=== PATIENT | male | born 1930 | race Caucasian/White ===

== ENCOUNTER 2018-05-05 12:01 | Outpatient (CLI) | payer MEDICARE | END 2018-05-05 12:02 | disposition home or self-care (01) | LOC: BICRAD 12:01 | PROVIDERS: ATTEND Internal Medicine | DX: M25.551 Pain in right hip (principal); M25.552 Pain in left hip; M16.0 Bilateral primary osteoarthritis of hip ==

== ENCOUNTER 2019-08-02 07:53 | Outpatient (CLI) | payer MEDICARE ==
--- NOTE | 2019-08-02 09:55 | MRI ---
MRI LUMBAR SPINE WITHOUT IV CONTRAST: HISTORY: Low back pain, left leg pain and tingling. TECHNIQUE: Multiplanar, multisequence MR examination of the lumbar spine is performed. FINDINGS: There is some levoscoliosis. Generalized disk desiccation changes and ligament and facet hypertrophic changes. 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 Left renal and right renal T1 hypointense, T2 hyperintense foci, evidence for renal cysts, althoug h incompletely visualized and characterized. There is type 1 endplate changes at L1-L2. T12-L1: No significant stenosis. L1-L2: Diffuse disk osteophytic changes with some moderate right lateral recess stenosis and foramina l stenosis. L2-L3: Moderate bilateral recess and foraminal stenosis. L3-L4: Moderate central canal and moderate to severe bilateral recess stenosis and bilateral foramina l stenosis. L4-L5: Mild bilateral recess stenosis and foraminal stenosis, worse on the left side. L5-S1: Very mild lateral recess stenosis and moderate bilateral foraminal stenosis. IMPRESSION: 1. Multilevel variable severity canal, lateral recess and foraminal stenosis. 2. 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 3. Type I endplate changes at L1-L2. 4. Bilateral renal abnormalities, statistically renal cysts. CODE T POS: TPC
== END 2019-08-02 07:54 | disposition home or self-care (01) ==
LOC: BICMRI 07:53
PROVIDERS: ATTEND Physical Medicine & Rehabilitation
DX: M48.07 Spinal stenosis, lumbosacral region (principal); M79.662 Pain in left lower leg; I72.8 Aneurysm of other specified arteries; N28.1 Cyst of kidney, acquired
CPT/HCPCS: 72148